=== PATIENT | male | born 2000 | race Caucasian/White ===

== ENCOUNTER 2020-09-29 02:04 | Emergency (ER) | payer SELFPAY ==
--- NOTE | 2020-09-29 02:05 | XRR_ITS ---
PROCEDURE INFORMATION: Exam: XR Chest Exam date and time: 09/29/2020 2:08 AM Age: 20 years old Clinical indication: Injury or trauma; Blunt trauma (contusions or hematomas); Patient HX: C/O left chest wall pain after a fall from a skate board. ; Additional info: Cp TECHNIQUE: Imaging protocol: XR of the chest. Views: 2 views. COMPARISON: CR Chest 1 [place] [id number] 06/27/2015 5:26 PM FINDINGS: Lungs: Unremarkable. No consolidation. Pleural spaces: Unremarkable. No pleural effusion. No pneumothorax. Heart/Mediastinum: Unremarkable. No cardiomegaly. Bones/joints: Unremarkable. XR/XR chest 2V* [id number] IMPRESSION: No acute findings.
--- NOTE | 2020-09-29 02:05 | ECG_ITS ---
[facility] Test Date: 2020-09-29 Pat Name: Masood Wakefield Department: Room: Gender: Male Prop Drawer: : 2000 Requested By: Clara Farmer Order Number: [id number] Janay MD: Faye Ward M.D. Measurements Intervals Steger Rate: 51 P: -7 IN: 127 QRS: 37 QRSD: 120 T: 26 QT: 426 QTc: 394 Interpretive Statements SINUS BRADYCARDIA WITH MARKED SINUS ARRHYTHMIA MODERATE INTRAVENTRICULAR CONDUCTION DELAY [110+ ms QRS DURATION] Compared to ECG 06/27/2015 17:39:53 Intraventricular conduction delay now present Electronically Signed On 09-30-2020 7:25:03 CDT by Faye Ward M.D. [email or web address] [email or web address] [id number] f
[2020-09-29 02:15] VITALS: BP 140/79; PULSE 59; RESP 18; TEMP 36.6; O2SAT 96; BMI 40.4
--- NOTE | 2020-09-29 02:29 | ED_ITS ---
HPI - Chest Pain General: Chief Complaint: Chest Pain Stated Complaint: CP/ears ringing Time Seen by Provider: 09/29/20 02:06 Source: patient Mode of arrival: ambulatory Limitations: no limitations History of Present Illness: HPI narrative: 20-year-old male has been having left-sided chest pain for last 3 to 4 days. He states that sharp in nature and seems to come and go. States worse with palpation improved with rest. He states he has had multiple falls over the last 3 weeks while skateboarding. He states he has had 4 and he did land on that side of his chest. He denies any head pain. He states he does feel anxious but does have severe anxiety. Denies any shortness of breath. Denies any diaphoresis or nausea. Associated symptoms: Deny abdominal pain, dyspnea, fever(s), nausea or vomiting Review of Systems Const: Denies: fever(s), chills, body aches or change in appetite Eyes: Denies: blurry vision or eye discomfort ENMT: Denies: throat pain or dental pain Card: Denies: chest pain Resp: Denies: dyspnea GI: Denies: abdominal pain, nausea, vomiting or diarrhea : Denies: dysuria Musc: Denies: neck pain or back pain Skin/Breast: Denies: rash Neuro: Denies: headache(s) Psych: Reports: anxiety; Denies: depression Chip/Lymph: Denies: easy bruising All/Imm: Denies: urticaria Physical Exam Const: COMMON NORMALS: no acute distress, patient oriented x3 and healthy appearing HENMT: COMMON NORMALS: normocephalic and atraumatic HEAD & SCALP: normocephalic and atraumatic Eye: COMMON NORMALS: Equal, round and reactive pupils present and EOMs intact bilaterally PUPIL: Yes Equal, round and reactive pupils present Neck/C-Spine: COMMON NORMALS: full ROM and supple Chest: COMMONS NORMALS: normal inspection of the chest OTHER: Point tender over left chest Resp: COMMON NORMALS: normal respiratory effort, No retractions, No use of accessory muscles and clear to auscultation bilaterally AUSCULTATION: clear to auscultation bilaterally Cardio: COMMON NORMALS: regular rate, regular rhythm and No murmurs present (Cardio) RATE: regular rate RHYTHM: regular rhythm GI: COMMON NORMALS: Normal to inspection, nondistended, normoactive bowel sounds present, Soft to palpation, non-tender and no masses PALPATION: Yes Soft to palpation Extremity: COMMON NORMALS: normal to inspection and full ROM Neuro: COMMON NORMALS: patient oriented x3, moves all extremities and no focal motor deficits Psych: COMMON NORMALS: mental status grossly normal, Normal thought process present and cooperative THOUGHT PROCESS: Normal thought process present Skin: COMMON NORMALS: no rashes or lesions noted and no wounds GENERAL SKIN EXAM: no rashes or lesions noted Course Vital Signs: Vital signs: Vital Signs Temperature 97.9 F 09/29/20 02:15 Pulse Rate 70 09/29/20 02:51 Respiratory Rate 13 09/29/20 02:51 Blood Pressure 157/97 09/29/20 02:51 Pulse Oximetry 98 09/29/20 02:51 MDM - Chest Pain MDM Narrative: Medical decision making narrative: Patient presents here with chest pains atypical in nature. His x-ray along with EKG and blood work are all normal. His pain is likely from a chest wall contusion. Patient has no signs of acute coronary syndrome or pulmonary embolism. He is stable for discharge and is to follow-up his PCP and return if worsening. Lab Data: Labs: Lab Results 09/29/20 09/29/20 09/29/20 Range/Units 02:25 02:25 02:25 WBC 11.9 (4.5-13.0) 10^3/ uL RBC 5.13 (4.1-5.3) 10^6/u L Hgb 15.1 (11.7-16.6) g/dL Hct 44.7 (42.0-52.0) % MCV 87.1 (80-94) fL MCH 29.4 (28.0-34.0) pg MCHC 33.8 (30.0-36.0) g/dL RDW 13.1 (12.1-15.1) % Plt Count 308 (130-400) 10^3/c mm MPV 11.7 H (7.4-10.4) fL Neut % (Auto) 56.7 % Lymph % (Auto) 32.5 % [place] % (Auto) 8.8 % Eos % (Auto) 1.4 % Baso % (Auto) 0.3 % Neut # (Auto) 6.71 (1.8-8.0) 10^3/u L Lymph # (Auto) 3.9 (1.5-6.5) 10^3/u L [place] # (Auto) 1.1 H (0.2-0.9) 10^3/u L Eos # (Auto) 0.2 (0.0-0.8) 10^3/u L Baso # (Auto) 0.0 (0.0-0.1) 10^3/u L Nucleated RBC % (a uto) 0 % Nucleated RBCs # 0.0 /100WBC Sodium 137 (136-145) mmol/L Potassium 3.9 (3.5-5.1) mmol/L Chloride 102 (98-107) mmol/L Carbon Dioxide 21 L (22-29) mmol/L Anion Gap 17.9 (5-19) BUN 12 (6-20) mg/dL Creatinine 0.6 L (0.7-1.2) mg/dL GFR Calculation 171.8 H (90-130) mL/min Glucose 95 (65-115) mg/dL Calculated Osmolal ity 284 L (285-295) mOsm/k g Calcium 8.9 (8.5-10.5) mg/dL Total Bilirubin 0.9 (0.15-1.2) mg/dL AST 26 (0-40) U/L ALT 20 (0-41) U/L Alkaline Phosphata se 69 (40-130) IU/L Troponin T Baselin e 6 (0-15) ng/L Total Protein 7.3 (6.6-8.7) g/dL Albumin 4.4 (3.5-5.2) g/dL Globulin 2.9 (1.3-4.6) g/dL EKG Data^: EKG 1: Attestation: I personally reviewed and interpreted this EKG as follows: EKG interpretation date: 09/29/20 EKG interpretation time: 02:18 Interpretation: sinus ellie hr [address] or t wave banormalities qrs 120 qtc 402 Discharge Plan Discharge Patient Disposition: Home Clinical Impression: Chest pain Qualifiers: Chest pain type: unspecified Qualified Code(s): R07.9 - Chest pain, unspecified Condition: Stable Prescriptions: New Naprosyn 500 mg tablet 500 mg PO BID PRN (Reason: pain) Qty: 20 RF: 0 Discharge Orders: Discharge ED (Routine); Ordered 09/29/20 Ordered By: Clara Farmer Referrals: Justa Arce DO [Primary Care Provider] - Discharge Diet: Advance as tolerated Discharge Activity: Resume usual activity Patient Instructions: Chest Pain (ED) Coding Level of Care Code ED Melting Supervisor for Chg Fwd Exam Comprehensive
[2020-09-29 02:35] LABS: Basophils % 0.3 %; Eosinophils # 0.2 10^3/uL (0.0-0.8); Eosinophils % 1.4 %; Hematocrit 44.7 % (42.0-52.0); Hemoglobin 15.1 g/dL (11.7-16.6); Lymphocytes # 3.9 10^3/uL (1.5-6.5); Lymphocytes % 32.5 %; Mean Corpuscular HGB Conc 33.8 g/dL (30.0-36.0); Mean Corpuscular Hemoglobin 29.4 pg (28.0-34.0); Mean Corpuscular Volume 87.1 fL (80-94); Mean Platelet Volume 11.7 fL (7.4-10.4); Monocytes # 1.1 10^3/uL (0.2-0.9); Monocytes % 8.8 %; Neutrophils # 6.71 10^3/uL (1.8-8.0); Neutrophils % 56.7 %; Nucleated Red Blood Cells % 0 %; Platelet Count 308 10^3/cmm (130-400); Red Blood Count 5.13 10^6/uL (4.1-5.3); Red Cell Distribution Width 13.1 % (12.1-15.1); White Blood Count 11.9 10^3/uL (4.5-13.0)
[2020-09-29] MEDS: LORazepam 2 mg/mL INJ 1 mL 1 MG IVP (02:42)
[2020-09-29 02:51] VITALS: BP 157/97; PULSE 70; RESP 13; O2SAT 98
[2020-09-29 02:57] LABS: Albumin Level 4.4 g/dL (3.5-5.2); Alkaline Phosphatase 69 IU/L (40-130); Blood Urea Nitrogen 12 mg/dL (6-20); Calcium 8.9 mg/dL (8.5-10.5); Carbon Dioxide 21 mmol/L (22-29); Chloride 102 mmol/L (98-107); Globulin 2.9 g/dL (1.3-4.6); Glomerular Filtration Rate 171.8 mL/min (90-130); Glucose 95 mg/dL (65-115); Osmolality Calculated 284 mOsm/kg (285-295); Sodium 137 mmol/L (136-145); Total Bilirubin 0.9 mg/dL (0.15-1.2); Total Protein 7.3 g/dL (6.6-8.7)
[2020-09-29 02:58] LABS: Troponin(5th) Baseline 6 ng/L (0-15)
[2020-09-29 03:01] LABS: Alanine Aminotransferase 20 U/L (0-41); Anion Gap 17.9 (5-19); Aspartate Amino Transferase 26 U/L (0-40); Potassium 3.9 mmol/L (3.5-5.1)
[2020-09-29 03:14] VITALS: BP 161/90; PULSE 68; RESP 19; O2SAT 98
== END 2020-09-29 03:10 | disposition home or self-care (01) ==
PROVIDERS: Emergency Provider Emergency Medicine; PCP Family Medicine
DX: R07.9 Chest pain, unspecified (principal)
CPT/HCPCS: 71046; 80053; 84484; 85025; 93005; 96374; 99283; J2060